=== PATIENT | female | born 1935 | race Caucasian/White ===

== ENCOUNTER 2018-04-30 10:23 | Inpatient (IN) | payer MEDICARE, OTHER ==
[~2018-04-30] VITALS: Ht 162.6 cm; Wt 128.3 kg
[2018-04-30 11:17] LABS: BASOPHILS ABSOLUTE AUTO 0.02 K/mm3 (0.00-0.23); BASOPHILS PERCENT AUTO 0 % (0-2); EOSINOPHILS ABSOLUTE AUTO 0.11 K/mm3 (0.00-0.68); EOSINOPHILS PERCENT AUTO 1 % (0-6); Hematocrit 43.2 % (33.0-51.0); IMMATURE GRAN ABSOLUTE AUTO 0.03 K/mm3 (0.00-0.10); IMMATURE GRAN PERCENT AUTO 0 % (0-1); LYMPHOCYTES PERCENT AUTO 19 % (21-46); MONOCYTES ABSOLUTE AUTO 1.66 K/mm3 (0.16-1.47); MONOCYTES PERCENT AUTO 15 % (4-13); Mean Corpuscular HGB 30.2 pg (26.0-34.0); Mean Corpuscular HGB Conc 32.4 g/dL (31.5-36.5); Mean Corpuscular Volume 93 fL (80-100); Mean Platelet Volume 12.5 fL (9.1-12.4); NEUTROPHILS PERCENT AUTO 65 % (41-73); Platelet Count 250 K/mm3 (150-400); RDW Coefficient Variation 13.2 % (11.7-14.2); RDW Standard Deviation 44.9 fL (35.1-46.3); Red Blood Cell Count 4.64 M/mm3 (3.80-5.20); White Blood Cell Count 10.82 K/mm3 (4.00-11.30)
[2018-04-30 11:21] LABS: Albumin, Blood 3.2 g/dL (3.4-5.0); Albumin/Globulin Ratio 0.9 (0.8-1.8); Bilirubin, Total 1.1 mg/dL (0.1-1.0); Bun/Creatinine Ratio 21.6 (12.0-20.0); Calcium, Blood 8.4 mg/dL (8.5-10.1); Creatinine, Blood 1.53 mg/dL (0.40-1.00); Globulin, Blood 3.4 g/dL (2.2-4.0); Potassium, Blood 3.7 mmol/L (3.5-5.5); Total Protein, Blood 6.6 g/dL (6.4-8.2)
[2018-04-30] MEDS ORDERED: ALLEGRA ALLERG180 MG PO (12:20)
[2018-04-30] MEDS ORDERED: LOSA50 PO (12:20)
[2018-04-30] MEDS ORDERED: POTA8 PO (12:20)
[2018-04-30] MEDS ORDERED: Simvastatin40 MG PO (12:21)
[2018-04-30] MEDS ORDERED: OMEPRAZOLE MAGN20 MG PO (12:21)
[2018-04-30] MEDS ORDERED: PYRI60 PO (12:21)
[2018-04-30] MEDS ORDERED: HYDCHL25 PO (12:22)
[2018-04-30] MEDS ORDERED: FURO20 PO (12:22)
[2018-04-30] MEDS ORDERED: LEVSOD137 PO (12:22)
[2018-04-30] MEDS ORDERED: GLIP5 PO (12:22)
[2018-04-30] MEDS ORDERED: METF500C PO (12:23)
[2018-04-30] MEDS ORDERED: Ocuvite Softge1 EAC1 PO (16:47)
[2018-04-30] MEDS ORDERED: Aspirin EC81 MG PO (16:49)
[2018-04-30] MEDS ORDERED: ERGO400 PO (16:51)
[2018-04-30] MEDS ORDERED: CENTRUM SILVER1 EAC2 PO (16:52)
[2018-05-01 04:42] LABS: BASOPHILS ABSOLUTE AUTO 0.03 K/mm3 (0.00-0.23); BASOPHILS PERCENT AUTO 0 % (0-2); EOSINOPHILS ABSOLUTE AUTO 0.23 K/mm3 (0.00-0.68); EOSINOPHILS PERCENT AUTO 2 % (0-6); Hematocrit 35.5 % (33.0-51.0); Hemoglobin 11.5 g/dL (11.5-16.0); IMMATURE GRAN ABSOLUTE AUTO 0.03 K/mm3 (0.00-0.10); IMMATURE GRAN PERCENT AUTO 0 % (0-1); LYMPHOCYTES ABSOLUTE AUTO 2.31 K/mm3 (0.84-5.20); LYMPHOCYTES PERCENT AUTO 24 % (21-46); MONOCYTES ABSOLUTE AUTO 1.78 K/mm3 (0.16-1.47); MONOCYTES PERCENT AUTO 18 % (4-13); Mean Corpuscular HGB 29.9 pg (26.0-34.0); Mean Corpuscular HGB Conc 32.4 g/dL (31.5-36.5); Mean Corpuscular Volume 92 fL (80-100); Mean Platelet Volume 12.8 fL (9.1-12.4); NEUTROPHILS ABSOLUTE AUTO 5.27 K/mm3 (1.96-9.15); NEUTROPHILS PERCENT AUTO 55 % (41-73); Platelet Count 200 K/mm3 (150-400); RDW Coefficient Variation 13.3 % (11.7-14.2); Red Blood Cell Count 3.84 M/mm3 (3.80-5.20); White Blood Cell Count 9.65 K/mm3 (4.00-11.30)
--- NOTE | 2018-05-01 04:59 | NUR ---
SHIFT SUMMARY PT ALERT AND ORIENTED. OFFERS NO C/O'S. PT ATE SOME JELLO AND SHORTLY AFTER TO BATHROOM MULTIPLE TIMES WITH LOOSE STOOLS. PT UPSET BECAUSE SHE IS NOT ABLE TO ALWAYS MAKE IT TO THE BATHROOM. PT BECOMING WEAKER THE MORE SHE GETS UP AND NEEDS HELP GETTING LOWER EXTREMITIES BACK INTO BED. PT HAS BEEN SLEEPING NOW AND NOT UP TO BATHROOM WITH LOOSE STOOLS SINCE ABOUT MIDNIGHT. IVF'S INFUSING PER PUMP WITHOUT DIFFICULTY, ARMBOARD PLACED ON RIGHT ARM PER PT REQUEST TO PREVENT HER FROM BENDING AT ELBOW. WILL CONTINUE TO MONITOR.
[2018-05-01 05:03] LABS: Albumin, Blood 2.5 g/dL (3.4-5.0); Albumin/Globulin Ratio 0.9 (0.8-1.8); Bilirubin, Total 1.1 mg/dL (0.1-1.0); Bun/Creatinine Ratio 20.3 (12.0-20.0); C-REACTIVE PROTEIN, EXT RANGE 1.92 mg/dL (0.000-0.300); Calcium, Blood 6.9 mg/dL (8.5-10.1); Creatinine, Blood 1.23 mg/dL (0.40-1.00); Globulin, Blood 2.7 g/dL (2.2-4.0); Potassium, Blood 3.2 mmol/L (3.5-5.5); Total Protein, Blood 5.2 g/dL (6.4-8.2)
[2018-05-01 05:06] LABS: Thyroid Stimulating Hormone 2.05 uIU/mL (0.360-4.800)
[2018-05-01 05:11] LABS: Magnesium, Blood 1.1 mg/dL (1.6-2.4)
--- NOTE | 2018-05-01 05:19 | NUR ---
CRITICAL [facility] OF 1.1 CALLED FROM LAB, HOSPITALIST CALLED AND ORDER RECEIVED.
[2018-05-01 08:17] LABS: Source, Urine Clean Catch
[2018-05-01 08:18] LABS: Bilirubin, Urine Neg (Neg); Blood, Urine Neg (Neg); Glucose Qualitative, Urine Neg (Neg); Ketones, Urine 1+ (Neg); Leukocyte Esterase, Urine 1+ (Neg); Nitrite, Urine Neg (Neg); Protein, Urine 1+ (Neg); Urobilinogen, Urine NORM (Normal)
[2018-05-01 08:24] LABS: Appearance, Urine Clear (Clear); Color, Urine Yellow (P-Yellow)
[2018-05-01 08:26] LABS: Squamous Epithelial Cells Mod /hpf (Few)
[2018-05-01 08:27] LABS: Red Blood Cells, Urine 0-2 /hpf (0-2)
[2018-05-01 08:28] LABS: Bacteria Few /hpf
--- NOTE | 2018-05-01 18:27 | NUR ---
PATIENT A/O X4, UP WITH SBA TO RESTROOM. TOLERATING ADA DIET THIS SHIFT, NO DIARRHEA SINCE THIS AM. HAS NOT REQUIRED ANYTHING FOR PAIN. VSS. 18G IV TO L UPPER ARM WITH NS @ 125/HR. MAGNESIUM AND POTASSIUM REPLACED TODAY. ACHS BLOOD SUGARS, NO COVERAGE NEEDED THIS SHIFT. CALM AND COOPERATIVE WITH CARE, CALLS APPROPRIATELY FOR ASSISTANCE. NO ACUTE CHANGES THIS SHIFT.
[2018-05-02 04:56] LABS: Hematocrit 37.1 % (33.0-51.0); Hemoglobin 11.8 g/dL (11.5-16.0); Mean Corpuscular HGB 29.9 pg (26.0-34.0); Mean Corpuscular HGB Conc 31.8 g/dL (31.5-36.5); Mean Corpuscular Volume 94 fL (80-100); Mean Platelet Volume 12.5 fL (9.1-12.4); Platelet Count 194 K/mm3 (150-400); RDW Coefficient Variation 13.2 % (11.7-14.2); RDW Standard Deviation 45.8 fL (35.1-46.3); Red Blood Cell Count 3.94 M/mm3 (3.80-5.20); White Blood Cell Count 10.65 K/mm3 (4.00-11.30)
[2018-05-02 05:17] LABS: Albumin, Blood 2.6 g/dL (3.4-5.0); Anion Gap 7 mmol/L (6-16); Blood Urea Nitrogen 15 mg/dL (8-24); Bun/Creatinine Ratio 13.6 (12.0-20.0); CO2, Blood 22 mmol/L (21-32); Calcium, Blood 7.3 mg/dL (8.5-10.1); Chloride, Blood 114 mmol/L (98-108); Glomerular Filtration Rate 50 (60-); Glucose, Blood 135 mg/dL (70-99); Magnesium, Blood 1.8 mg/dL (1.6-2.4); Phosphorus, Blood 2.1 mg/dL (2.5-4.9); Potassium, Blood 3.7 mmol/L (3.5-5.5); Sodium, Blood 143 mmol/L (136-145)
--- NOTE | 2018-05-02 05:25 | NUR ---
SHIFT SUMMARY PT HAD BOUT OF LOOSE STOOLS X 3-4 EARLY ON IN EVENING. PT BECOMES TEARY BECAUSE SHE FEELS SO WEAK AND NEEDS HELP TO GET LOWER EXTREMITIES BACK INTO BED. PT HAS SLEPT WELL SINCE ABOUT 10 PM, NO FURTHER STOOLS. WILL CONTINUE TO MONITOR.
--- NOTE | 2018-05-02 14:02 | NUR ---
Patient gave consent for student nurse, Haydee Blackwood to assist RN with her care on 05/02/18. Care will be given 05/03/18.
--- NOTE | 2018-05-02 15:40 | NUR ---
TALKED TO DR. THOMPSON ABOUT LAB UNABLE TO DO TPMT . OK TO CANCEL AND MD REQUEST QUANTIFERON TEST.
--- NOTE | 2018-05-02 18:23 | NUR ---
ALERT AND ORIENTED. STANDBY ASSIST TO BATHROOM. IV PATENT W/POTASSIUM INFUSING W/NACL AT SLOW RATE. DENIES PAIN. UNLABORED RESPIRATIONS. PLEASANT, COOPERATIVE. POSSIBLE D'C TOMORROW. WILL CONTINUE TO MONITOR.
--- NOTE | 2018-05-03 03:27 | NUR ---
SHIFT SUMMARY PT AWAKE, SITTING IN CHAIR AT BS, DURING SHIFT REPORT. VISITORS IN RM. PT REPORTED THAT SHE HAS HAD DIARRHEA FOR SEVERAL MONTHS, AND UNABLE TO GET IT STOPPED OR CHECKED OUT. PT REPORTED THAT SHE IS THE CAREGIVER FOR HER AND UNABLE TO LEAVE HIM, UNTIL DAUGHTER CAME UP FOR A VISIT. PT REPORTED IMPROVEMENT SINCE ADMISSION. CALLS FOR ASSIST TO BTHRM WITH IV PUMP. PT MORBIDLY, MAKING MOBILITY DIFFICULT AND DOES NOT LIKE TOO MUCH HELP D/T ARTHRITIS PAIN. C/O SWELLING IN HER LEGS, BUT SITS IN A CHAIR WITH LE'S DEPENDANT MUCH OF THE TIME. ENCOURGED PT TO ELEVATE WHEN POSSIBLE. PT REPORTED DIFFICULTY WITH LYING IN BED D/T BACK AND SHOULDER PAIN. HAS SEEMED TO REST WELL THOUGH TONIGHT, WHILE IN BED. HAS DENIED NEEDS, EXCEPT FOR ASSIST TO BTHRM. CALL LT IN REACH. ABLE TO MAKE NEEDS KNOWN.
[2018-05-03 05:00] LABS: BASOPHILS ABSOLUTE AUTO 0.02 K/mm3 (0.00-0.23); BASOPHILS PERCENT AUTO 0 % (0-2); EOSINOPHILS ABSOLUTE AUTO 0.27 K/mm3 (0.00-0.68); EOSINOPHILS PERCENT AUTO 3 % (0-6); Hematocrit 36.8 % (33.0-51.0); Hemoglobin 11.7 g/dL (11.5-16.0); IMMATURE GRAN ABSOLUTE AUTO 0.09 K/mm3 (0.00-0.10); IMMATURE GRAN PERCENT AUTO 1 % (0-1); LYMPHOCYTES ABSOLUTE AUTO 2.04 K/mm3 (0.84-5.20); LYMPHOCYTES PERCENT AUTO 21 % (21-46); MONOCYTES PERCENT AUTO 16 % (4-13); Mean Corpuscular HGB 29.9 pg (26.0-34.0); Mean Corpuscular HGB Conc 31.8 g/dL (31.5-36.5); Mean Corpuscular Volume 94 fL (80-100); Mean Platelet Volume 12.4 fL (9.1-12.4); NEUTROPHILS ABSOLUTE AUTO 5.71 K/mm3 (1.96-9.15); NEUTROPHILS PERCENT AUTO 59 % (41-73); Platelet Count 187 K/mm3 (150-400); RDW Coefficient Variation 13.4 % (11.7-14.2); RDW Standard Deviation 46.5 fL (35.1-46.3); Red Blood Cell Count 3.91 M/mm3 (3.80-5.20); White Blood Cell Count 9.63 K/mm3 (4.00-11.30)
[2018-05-03 05:34] LABS: Bun/Creatinine Ratio 10.1 (12.0-20.0); Calcium, Blood 7.5 mg/dL (8.5-10.1); Creatinine, Blood 1.09 mg/dL (0.40-1.00); Potassium, Blood 3.7 mmol/L (3.5-5.5)
[2018-05-03] MEDS ORDERED: CALCA500S6 PO (12:42)
[2018-05-03] MEDS ORDERED: CIPR250 PO (12:43)
[2018-05-03] MEDS ORDERED: BISM300CH PO (12:43)
[2018-05-03] MEDS ORDERED: METO10 PO (12:44)
[2018-05-03] MEDS ORDERED: Humalog100 UNIT/1 SC (12:45)
[2018-05-03] MEDS ORDERED: Nystatin15 GM TOP (12:46)
[2018-05-03] MEDS ORDERED: ONDA4ODT MM (12:46)
[2018-05-03] MEDS ORDERED: METR500 PO (12:46)
--- NOTE | 2018-05-03 13:33 | NUR ---
REVIEW D'C INSTRUCTIONS EXTENSIVELY.AWARE TO PREPRESS STRIPPER MEDS AT [facility]. REVIEW ALL NEW MEDS WITH PATIENT BEING FAMILAR WITH HOW TO GIVE INSULIN INJECTIONS. ALREADY HAS APPT W/PCP. AWARE IF HAVING PROBLEMS TO CALL PCP OR GO TO E.R. IN W/C W/ESCORT AND MULTIPLE FAMILY MEMBERS.
== END 2018-05-03 13:39 | disposition home or self-care (01) | DRG 392 ==
LOC: ER 10:23 → MEDS 15:30
PROVIDERS: Physician Assistant; ADMIT Family Medicine
DX: K52.9 Noninfective gastroenteritis and colitis, unspecified (principal); Z68.41 Body mass index [BMI] 40.0-44.9, adult; E11.22 Type 2 diabetes mellitus with diabetic chronic kidney disease; E11.65 Type 2 diabetes mellitus with hyperglycemia; E86.0 Dehydration; E11.42 Type 2 diabetes mellitus with diabetic polyneuropathy; G70.9 Myoneural disorder, unspecified; E83.42 Hypomagnesemia; N18.3 Chronic kidney disease, stage 3 (moderate); R50.9 Fever, unspecified; N28.9 Disorder of kidney and ureter, unspecified; I12.9 Hypertensive chronic kidney disease with stage 1 through stage 4 chronic kidney disease, or unspecified chronic kidney disease; E03.9 Hypothyroidism, unspecified; E78.5 Hyperlipidemia, unspecified; R60.0 Localized edema; E78.1 Pure hyperglyceridemia; E66.9 Obesity, unspecified; Z79.84 Long term (current) use of oral hypoglycemic drugs; Z87.891 Personal history of nicotine dependence; Z98.84 Bariatric surgery status; Z98.0 Intestinal bypass and anastomosis status; Z90.49 Acquired absence of other specified parts of digestive tract; Z88.2 Allergy status to sulfonamides; Z88.5 Allergy status to narcotic agent; Z88.1 Allergy status to other antibiotic agents
CPT/HCPCS: 36415; 74018; 74176; 80048; 80053; 80069; 81001; 82306; 82947; 83036; 83605; 83690; 83735; 84145; 84443; 85025; 85027; 86140; 87507; 96361; 96365; 99285-25; J0744; J1650; J2405; J3475; J3480; J7030; J7060; J7120

== ENCOUNTER 2018-07-28 10:26 | Emergency (ER) | payer MEDICARE, OTHER ==
[~2018-07-28] VITALS: Ht 162.6 cm; Wt 112.0 kg
[~2018-07-28 10:26] MED LIST: ALLEGRA ALLERG180 MG PO; Aspirin EC81 MG PO; BISM300CH PO; CALCA500S6 PO; CENTRUM SILVER1 EAC2 PO; CIPR250 PO; ERGO400 PO; FURO20 PO; GLIP5 PO; HYDCHL25 PO; Humalog100 UNIT/1 SC; LEVSOD137 PO; LOSA50 PO; METF500C PO; METO10 PO; METR500 PO; Nystatin15 GM TOP; OMEPRAZOLE MAGN20 MG PO; ONDA4ODT MM; Ocuvite Softge1 EAC1 PO; POTA8 PO; PYRI60 PO; Simvastatin40 MG PO
[2018-07-28 10:47] LABS: Source, Urine Voided
[2018-07-28] MEDS ORDERED: Humalog100 UNIT/3 SC (10:47)
[2018-07-28] MEDS ORDERED: HYDCHL25 PO (10:49)
[2018-07-28] MEDS ORDERED: ALLEGRA ALLERG180 M1 PO (10:49)
[2018-07-28] MEDS ORDERED: ACID REDUCER20 MG PO (10:50)
[2018-07-28] MEDS ORDERED: GLIP5 PO (10:51)
[2018-07-28 10:56] LABS: Bilirubin, Urine Neg (Neg); Blood, Urine 4+ (Neg); Glucose Qualitative, Urine Neg (Neg); Ketones, Urine Neg (Neg); Leukocyte Esterase, Urine 1+ (Neg); Nitrite, Urine Neg (Neg); Protein, Urine Neg (Neg); Specific Gravity, Urine 1.005 (1.003-1.022); Urobilinogen, Urine NORM (Normal); pH, Urine 6.5 (5.0-8.0)
[2018-07-28 11:11] LABS: Appearance, Urine Clear (Clear); Color, Urine Yellow (P-Yellow)
[2018-07-28 11:13] LABS: Bacteria Few /hpf; Squamous Epithelial Cells Few /hpf (Few)
[2018-07-28] MEDS ORDERED: Macrobid 100 M100 MG PO (12:17)
== END 2018-07-28 12:38 | disposition home or self-care (01) ==
LOC: ER 10:26
PROVIDERS: Emergency Medicine
DX: M54.5 Low back pain (principal); N39.0 Urinary tract infection, site not specified
CPT/HCPCS: 72100; 81001; 82947; 87077; 87086; 87186; 99284-25

== ENCOUNTER → 2020-04-09 | Outpatient (CLI) | payer MEDICARE, OTHER ==
[~2020-04-09] MED LIST changes: +ACID REDUCER20 MG PO; +ALLEGRA ALLERG180 M1 PO; +Humalog100 UNIT/3 SC; +Macrobid 100 M100 MG PO; +Roxicodone5 MG PO
== END ==
LOC: LAB SHORT 17:39
DX: N39.0 Urinary tract infection, site not specified (principal)
CPT/HCPCS: 87077; 87086; 87186

== ENCOUNTER 2022-02-06 10:00 | Emergency (ER) | payer MEDICARE, OTHER ==
[~2022-02-06] VITALS: Ht 162.6 cm; Wt 124.7 kg
[2022-02-06 10:23] LABS: BASOPHILS ABSOLUTE AUTO 0.04 K/mm3 (0.00-0.23); BASOPHILS PERCENT AUTO 0 % (0-2); EOSINOPHILS ABSOLUTE AUTO 0.18 K/mm3 (0.00-0.68); EOSINOPHILS PERCENT AUTO 2 % (0-6); Hematocrit 48.1 % (33.0-51.0); Hemoglobin 15.5 g/dL (11.5-16.0); IMMATURE GRAN ABSOLUTE AUTO 0.05 K/mm3 (0.00-0.10); IMMATURE GRAN PERCENT AUTO 1 % (0-1); LYMPHOCYTES ABSOLUTE AUTO 1.78 K/mm3 (0.84-5.20); LYMPHOCYTES PERCENT AUTO 18 % (21-46); MONOCYTES ABSOLUTE AUTO 1.04 K/mm3 (0.16-1.47); MONOCYTES PERCENT AUTO 11 % (4-13); Mean Corpuscular HGB 29.2 pg (26.0-34.0); Mean Corpuscular HGB Conc 32.2 g/dL (31.5-36.5); Mean Corpuscular Volume 91 fL (80-100); Mean Platelet Volume 11.7 fL (9.1-12.4); NEUTROPHILS ABSOLUTE AUTO 6.83 K/mm3 (1.96-9.15); NEUTROPHILS PERCENT AUTO 69 % (41-73); Platelet Count 214 K/mm3 (150-400); RDW Coefficient Variation 13.2 % (11.7-14.2); RDW Standard Deviation 44.5 fL (35.1-46.3); White Blood Cell Count 9.92 K/mm3 (4.00-11.30)
[2022-02-06 10:34] LABS: Albumin, Blood 3.6 g/dL (3.4-5.0); Bilirubin, Total 1.4 mg/dL (0.1-1.0); Bun/Creatinine Ratio 20.8 (12.0-20.0); Calcium, Blood 9.9 mg/dL (8.5-10.1); Creatinine, Blood 0.77 mg/dL (0.40-1.00); Globulin, Blood 3.6 g/dL (2.2-4.0); Magnesium, Blood 1.9 mg/dL (1.6-2.4); Potassium, Blood 4.2 mmol/L (3.5-5.5); Total Protein, Blood 7.2 g/dL (6.4-8.2)
[2022-02-06 11:19] LABS: Influenza A, PCR NEGATIVE (NEGATIVE); Influenza B, PCR NEGATIVE (NEGATIVE); Resp Syncytial Virus, PCR NEGATIVE (NEGATIVE); SARS-Cov-2 (COVID-19) PCR, MMC NEGATIVE (NEGATIVE)
== END 2022-02-06 13:04 | disposition home or self-care (01) ==
LOC: ER 10:00
PROVIDERS: Student in an Organized Health Care Education/Training Program
DX: R11.0 Nausea (principal); T38.3X5A Adverse effect of insulin and oral hypoglycemic [antidiabetic] drugs, initial encounter; E11.65 Type 2 diabetes mellitus with hyperglycemia; E03.9 Hypothyroidism, unspecified; E78.5 Hyperlipidemia, unspecified; K21.9 Gastro-esophageal reflux disease without esophagitis; I10 Essential (primary) hypertension; Z20.822 Contact with and (suspected) exposure to COVID-19; Z88.5 Allergy status to narcotic agent; Z88.2 Allergy status to sulfonamides; Z88.8 Allergy status to other drugs, medicaments and biological substances; Z88.1 Allergy status to other antibiotic agents; Z79.899 Other long term (current) drug therapy; Z79.890 Hormone replacement therapy; Z79.82 Long term (current) use of aspirin; Z79.4 Long term (current) use of insulin; Z87.891 Personal history of nicotine dependence
CPT/HCPCS: 0241U; 80053; 83735; 85025; 93005; 93010; J2405

== ENCOUNTER 2022-03-16 05:57 | Emergency (ER) | payer MEDICARE, OTHER ==
[~2022-03-16] VITALS: Ht 162.6 cm; Wt 122.5 kg
[~2022-03-16 05:57] MED LIST changes: +AMLO5 PO; +XARELTO20 MG PO
[2022-03-16 06:57] LABS: BASOPHILS ABSOLUTE AUTO 0.02 K/mm3 (0.00-0.23); BASOPHILS PERCENT AUTO 0 % (0-2); EOSINOPHILS ABSOLUTE AUTO 0.16 K/mm3 (0.00-0.68); EOSINOPHILS PERCENT AUTO 2 % (0-6); Hemoglobin 13.3 g/dL (11.5-16.0); IMMATURE GRAN ABSOLUTE AUTO 0.03 K/mm3 (0.00-0.10); IMMATURE GRAN PERCENT AUTO 0 % (0-1); LYMPHOCYTES PERCENT AUTO 14 % (21-46); MONOCYTES ABSOLUTE AUTO 0.93 K/mm3 (0.16-1.47); MONOCYTES PERCENT AUTO 11 % (4-13); Mean Corpuscular HGB 29.8 pg (26.0-34.0); Mean Corpuscular HGB Conc 32.4 g/dL (31.5-36.5); Mean Corpuscular Volume 92 fL (80-100); Mean Platelet Volume 13.4 fL (9.1-12.4); NEUTROPHILS ABSOLUTE AUTO 6.02 K/mm3 (1.96-9.15); NEUTROPHILS PERCENT AUTO 72 % (41-73); Platelet Count 177 K/mm3 (150-400); RDW Coefficient Variation 13.6 % (11.7-14.2); RDW Standard Deviation 46.3 fL (35.1-46.3); Red Blood Cell Count 4.46 M/mm3 (3.80-5.20); White Blood Cell Count 8.36 K/mm3 (4.00-11.30)
[2022-03-16 07:20] LABS: Albumin, Blood 3.1 g/dL (3.4-5.0); Bilirubin, Total 1.2 mg/dL (0.1-1.0); Creatinine, Blood 0.93 mg/dL (0.40-1.00); Globulin, Blood 3.2 g/dL (2.2-4.0); Potassium, Blood 4.2 mmol/L (3.5-5.5); Total Protein, Blood 6.3 g/dL (6.4-8.2)
[2022-03-16 08:55] LABS: Influenza A, PCR NEGATIVE (NEGATIVE); Influenza B, PCR NEGATIVE (NEGATIVE); Resp Syncytial Virus, PCR NEGATIVE (NEGATIVE); SARS-Cov-2 (COVID-19) PCR, MMC NEGATIVE (NEGATIVE)
[2022-03-16] MEDS ORDERED: FURO20 PO (10:20)
[2022-03-16] MEDS ORDERED: CEFD300 PO (10:43)
== END 2022-03-16 10:58 | disposition home or self-care (01) ==
LOC: ER 05:57
PROVIDERS: Student in an Organized Health Care Education/Training Program
DX: I11.0 Hypertensive heart disease with heart failure (principal); I50.9 Heart failure, unspecified; N39.0 Urinary tract infection, site not specified; R32 Unspecified urinary incontinence; E11.9 Type 2 diabetes mellitus without complications; E03.9 Hypothyroidism, unspecified; K21.9 Gastro-esophageal reflux disease without esophagitis; E78.5 Hyperlipidemia, unspecified; Z88.2 Allergy status to sulfonamides; Z88.5 Allergy status to narcotic agent; Z88.8 Allergy status to other drugs, medicaments and biological substances; Z79.899 Other long term (current) drug therapy; Z79.890 Hormone replacement therapy; Z79.82 Long term (current) use of aspirin; Z20.822 Contact with and (suspected) exposure to COVID-19
CPT/HCPCS: 0241U; 36415; 71045; 80053; 82947; 83880; 84484; 85025; 93005; 93010; A9270; J1940

== ENCOUNTER 2022-04-27 08:22 | Emergency (ER) | payer MEDICARE, OTHER ==
[~2022-04-27] VITALS: Ht 160 cm; Wt 122.5 kg
[~2022-04-27 08:22] MED LIST changes: +CEFD300 PO; -LEVSOD137 PO; +LEVSOD150 PO
[2022-04-27] MEDS ORDERED: BASAGLAR K100 UNIT/3 SC (09:08)
[2022-04-27] MEDS ORDERED: ADMELOG SO100 UNIT/2 (09:13)
[2022-04-27 10:25] LABS: Source, Urine Foley catheter
[2022-04-27 10:34] LABS: Bilirubin, Urine Neg (Neg); Blood, Urine Neg (Neg); Glucose Qualitative, Urine Neg (Neg); Ketones, Urine Neg (Neg); Leukocyte Esterase, Urine Neg (Neg); Nitrite, Urine Neg (Neg); Protein, Urine 2+ (Neg); Specific Gravity, Urine 1.015 (1.003-1.022); Urobilinogen, Urine NORM (Normal)
[2022-04-27 10:55] LABS: Appearance, Urine Clear (Clear); Color, Urine Yellow (P-Yellow)
[2022-04-27 10:56] LABS: Bacteria Not Seen /hpf; Red Blood Cells, Urine Not Seen /hpf (0-2); Squamous Epithelial Cells Rare /hpf (Few); White Blood Cells, Urine Not Seen /hpf (0-5)
== END 2022-04-27 12:11 | disposition home or self-care (01) ==
LOC: ER 08:22
PROVIDERS: Emergency Medicine
DX: L72.3 Sebaceous cyst (principal); E11.9 Type 2 diabetes mellitus without complications; E03.9 Hypothyroidism, unspecified; I10 Essential (primary) hypertension; K21.9 Gastro-esophageal reflux disease without esophagitis; E78.5 Hyperlipidemia, unspecified; Z88.8 Allergy status to other drugs, medicaments and biological substances; Z88.2 Allergy status to sulfonamides; Z88.5 Allergy status to narcotic agent; Z88.1 Allergy status to other antibiotic agents; Z79.899 Other long term (current) drug therapy; Z79.4 Long term (current) use of insulin; Z79.82 Long term (current) use of aspirin; Z87.891 Personal history of nicotine dependence
CPT/HCPCS: 51702; 81001; 90714

== ENCOUNTER 2022-04-30 12:44 | Emergency (ER) | payer MEDICARE, OTHER ==
[~2022-04-30] VITALS: Ht 160 cm; Wt 122.5 kg
[~2022-04-30 12:44] MED LIST changes: +ADMELOG SO100 UNIT/2; +BASAGLAR K100 UNIT/3 SC
[2022-04-30] MEDS ORDERED: ALLEGRA ALLERG180 MG PO (15:19)
[2022-04-30 19:02] LABS: BASOPHILS ABSOLUTE AUTO 0.06 K/mm3 (0.00-0.23); BASOPHILS PERCENT AUTO 1 % (0-2); EOSINOPHILS ABSOLUTE AUTO 0.28 K/mm3 (0.00-0.68); EOSINOPHILS PERCENT AUTO 3 % (0-6); Hematocrit 41.3 % (33.0-51.0); Hemoglobin 13.5 g/dL (11.5-16.0); IMMATURE GRAN ABSOLUTE AUTO 0.03 K/mm3 (0.00-0.10); IMMATURE GRAN PERCENT AUTO 0 % (0-1); LYMPHOCYTES PERCENT AUTO 16 % (21-46); MONOCYTES ABSOLUTE AUTO 1.36 K/mm3 (0.16-1.47); MONOCYTES PERCENT AUTO 14 % (4-13); Mean Corpuscular HGB 29.6 pg (26.0-34.0); Mean Corpuscular HGB Conc 32.7 g/dL (31.5-36.5); Mean Corpuscular Volume 91 fL (80-100); NEUTROPHILS ABSOLUTE AUTO 6.31 K/mm3 (1.96-9.15); NEUTROPHILS PERCENT AUTO 66 % (41-73); Platelet Count 177 K/mm3 (150-400); RDW Standard Deviation 46.5 fL (35.1-46.3); Red Blood Cell Count 4.56 M/mm3 (3.80-5.20); White Blood Cell Count 9.54 K/mm3 (4.00-11.30)
[2022-04-30 19:05] LABS: Bun/Creatinine Ratio 22.2 (12.0-20.0); Creatinine, Blood 0.85 mg/dL (0.40-1.00); Potassium, Blood 3.5 mmol/L (3.5-5.5)
[2022-04-30 19:07] LABS: Mean Platelet Volume 13.3 fL (9.1-12.4)
[2022-04-30] MEDS ORDERED: Vibramycin100 MG PO (19:38)
[2022-04-30] MEDS ORDERED: NYSTATIN-TRIAMC15 G1 TOP (19:38)
== END 2022-04-30 20:54 | disposition home or self-care (01) ==
LOC: ER 12:44
PROVIDERS: Emergency Medicine
DX: L03.221 Cellulitis of neck (principal); B95.62 Methicillin resistant Staphylococcus aureus infection as the cause of diseases classified elsewhere; B35.4 Tinea corporis; I10 Essential (primary) hypertension; E11.9 Type 2 diabetes mellitus without complications; E03.9 Hypothyroidism, unspecified; E78.5 Hyperlipidemia, unspecified; Z88.8 Allergy status to other drugs, medicaments and biological substances; Z88.2 Allergy status to sulfonamides; Z88.5 Allergy status to narcotic agent; Z88.1 Allergy status to other antibiotic agents; Z79.899 Other long term (current) drug therapy; Z79.4 Long term (current) use of insulin; Z79.82 Long term (current) use of aspirin
CPT/HCPCS: 80048; 82947; 85025; A9270; J2405

== ENCOUNTER 2022-05-02 13:05 | Inpatient (IN) | payer MEDICARE, OTHER ==
[~2022-05-02] VITALS: Ht 160 cm; Wt 129.1 kg
[~2022-05-02 13:05] MED LIST changes: +NYSTATIN-TRIAMC15 G1 TOP; +Vibramycin100 MG PO
[2022-05-02 15:15] LABS: BASOPHILS ABSOLUTE AUTO 0.06 K/mm3 (0.00-0.23); BASOPHILS PERCENT AUTO 1 % (0-2); EOSINOPHILS ABSOLUTE AUTO 0.07 K/mm3 (0.00-0.68); EOSINOPHILS PERCENT AUTO 1 % (0-6); Hematocrit 44.7 % (33.0-51.0); Hemoglobin 14.2 g/dL (11.5-16.0); IMMATURE GRAN ABSOLUTE AUTO 0.06 K/mm3 (0.00-0.10); IMMATURE GRAN PERCENT AUTO 1 % (0-1); LYMPHOCYTES ABSOLUTE AUTO 1.88 K/mm3 (0.84-5.20); LYMPHOCYTES PERCENT AUTO 18 % (21-46); MONOCYTES ABSOLUTE AUTO 1.61 K/mm3 (0.16-1.47); MONOCYTES PERCENT AUTO 16 % (4-13); Mean Corpuscular HGB 29.2 pg (26.0-34.0); Mean Corpuscular HGB Conc 31.8 g/dL (31.5-36.5); Mean Corpuscular Volume 92 fL (80-100); NEUTROPHILS ABSOLUTE AUTO 6.66 K/mm3 (1.96-9.15); NEUTROPHILS PERCENT AUTO 64 % (41-73); Platelet Count 195 K/mm3 (150-400); RDW Standard Deviation 47.4 fL (35.1-46.3); Red Blood Cell Count 4.86 M/mm3 (3.80-5.20); White Blood Cell Count 10.34 K/mm3 (4.00-11.30)
[2022-05-02 15:47] LABS: Influenza A, PCR NEGATIVE (NEGATIVE); Influenza B, PCR NEGATIVE (NEGATIVE); Resp Syncytial Virus, PCR NEGATIVE (NEGATIVE); SARS-Cov-2 (COVID-19) PCR, MMC NEGATIVE (NEGATIVE)
[2022-05-02 16:01] LABS: Albumin, Blood 3.2 g/dL (3.4-5.0); Albumin/Globulin Ratio 0.8 (0.8-1.8); Bilirubin, Total 0.8 mg/dL (0.1-1.0); Calcium, Blood 8.8 mg/dL (8.5-10.1); Creatinine, Blood 1.69 mg/dL (0.40-1.00); Globulin, Blood 3.9 g/dL (2.2-4.0); Potassium, Blood 4.4 mmol/L (3.5-5.5); Total Protein, Blood 7.1 g/dL (6.4-8.2)
[2022-05-02 23:57] LABS: Source, Urine Foley catheter
[2022-05-02 23:59] LABS: Bilirubin, Urine Neg (Neg); Blood, Urine 2+ (Neg); Glucose Qualitative, Urine Neg (Neg); Ketones, Urine Neg (Neg); Leukocyte Esterase, Urine Neg (Neg); Nitrite, Urine Neg (Neg); Protein, Urine 1+ (Neg); Specific Gravity, Urine 1.015 (1.003-1.022); Urobilinogen, Urine NORM (Normal)
[2022-05-03 00:08] LABS: Appearance, Urine Clear (Clear); Bacteria Not Seen /hpf; Color, Urine Yellow (P-Yellow); Red Blood Cells, Urine 0-2 /hpf (0-2); Squamous Epithelial Cells Not Seen /hpf (Few); White Blood Cells, Urine Not Seen /hpf (0-5)
[2022-05-03 00:09] LABS: Amorphous Light (0-Heavy)
[2022-05-03 04:58] LABS: BASOPHILS ABSOLUTE AUTO 0.07 K/mm3 (0.00-0.23); BASOPHILS PERCENT AUTO 1 % (0-2); EOSINOPHILS ABSOLUTE AUTO 0.26 K/mm3 (0.00-0.68); EOSINOPHILS PERCENT AUTO 2 % (0-6); Hematocrit 42.9 % (33.0-51.0); Hemoglobin 13.8 g/dL (11.5-16.0); IMMATURE GRAN ABSOLUTE AUTO 0.05 K/mm3 (0.00-0.10); IMMATURE GRAN PERCENT AUTO 0 % (0-1); LYMPHOCYTES ABSOLUTE AUTO 2.23 K/mm3 (0.84-5.20); LYMPHOCYTES PERCENT AUTO 18 % (21-46); MONOCYTES ABSOLUTE AUTO 1.83 K/mm3 (0.16-1.47); MONOCYTES PERCENT AUTO 14 % (4-13); Mean Corpuscular HGB 29.5 pg (26.0-34.0); Mean Corpuscular HGB Conc 32.2 g/dL (31.5-36.5); Mean Corpuscular Volume 92 fL (80-100); NEUTROPHILS ABSOLUTE AUTO 8.32 K/mm3 (1.96-9.15); NEUTROPHILS PERCENT AUTO 65 % (41-73); Platelet Count 191 K/mm3 (150-400); RDW Coefficient Variation 13.9 % (11.7-14.2); RDW Standard Deviation 46.9 fL (35.1-46.3); Red Blood Cell Count 4.68 M/mm3 (3.80-5.20); White Blood Cell Count 12.76 K/mm3 (4.00-11.30)
[2022-05-03 05:01] LABS: Mean Platelet Volume 13.4 fL (9.1-12.4)
[2022-05-03 05:16] LABS: Albumin/Globulin Ratio 0.8 (0.8-1.8); Bilirubin, Total 0.9 mg/dL (0.1-1.0); Bun/Creatinine Ratio 27.6 (12.0-20.0); Calcium, Blood 8.7 mg/dL (8.5-10.1); Creatinine, Blood 1.63 mg/dL (0.40-1.00); Globulin, Blood 3.7 g/dL (2.2-4.0); Magnesium, Blood 1.6 mg/dL (1.6-2.4); Potassium, Blood 3.9 mmol/L (3.5-5.5); Total Protein, Blood 6.7 g/dL (6.4-8.2)
--- NOTE | 2022-05-03 05:23 | NUR ---
Summary: Patient admitted overnight from ER for CHF exas. AOx4. VSS. Med rec completed with her daughter. Ellison present on admission so we removed that and changed it out, sent UA per protocol. Patient has red rash and excoriation on folds in elbows, knees, groin and neck. Received order for nystatin powder and applied it. Patient is a max assist for mobility and was able to stand and pivot off of the ER stretcher when she arrived. Patient also has an abscess on the back of her neck that was lanced a few days ago. On isolation for MRSA. On 3L NC.
--- NOTE | 2022-05-03 17:45 | NUR ---
ALERT AND ORIENTED, EMOTIONAL CRYING, REPORTS "EVERYTHING HURTS", DAUGHTER HELPFUL IN CARE AT BEDSIDE, OINTMENT AND POWDER TO YEAST FOLDS, BOIL TO LEFT POSTERIOR NECK DRSG CHANGED, WOUND CARE CONSULT ENTERED. 3L NC HYDRATION SATS AT 95%, EASILY SOB, DIMINSHED FINE CRACKLE IN BASES OF LUNGS, ENCOURAGE DEEP BREATHING AND COUGH. CALL LIGHT WITH IN REACH, MAKES NEEDS KNOWN, WILL RELAY TO PM RN
[2022-05-04 04:33] LABS: BASOPHILS ABSOLUTE AUTO 0.03 K/mm3 (0.00-0.23); BASOPHILS PERCENT AUTO 0 % (0-2); EOSINOPHILS ABSOLUTE AUTO 0.11 K/mm3 (0.00-0.68); EOSINOPHILS PERCENT AUTO 1 % (0-6); Hematocrit 39.9 % (33.0-51.0); Hemoglobin 12.8 g/dL (11.5-16.0); IMMATURE GRAN ABSOLUTE AUTO 0.05 K/mm3 (0.00-0.10); IMMATURE GRAN PERCENT AUTO 1 % (0-1); LYMPHOCYTES PERCENT AUTO 6 % (21-46); MONOCYTES ABSOLUTE AUTO 1.96 K/mm3 (0.16-1.47); MONOCYTES PERCENT AUTO 18 % (4-13); Mean Corpuscular HGB 29.5 pg (26.0-34.0); Mean Corpuscular HGB Conc 32.1 g/dL (31.5-36.5); Mean Corpuscular Volume 92 fL (80-100); NEUTROPHILS ABSOLUTE AUTO 8.05 K/mm3 (1.96-9.15); NEUTROPHILS PERCENT AUTO 74 % (41-73); Platelet Count 157 K/mm3 (150-400); RDW Coefficient Variation 13.7 % (11.7-14.2); RDW Standard Deviation 46.6 fL (35.1-46.3); Red Blood Cell Count 4.34 M/mm3 (3.80-5.20)
[2022-05-04 04:54] LABS: Albumin, Blood 2.8 g/dL (3.4-5.0); Albumin/Globulin Ratio 0.9 (0.8-1.8); Bilirubin, Total 0.7 mg/dL (0.1-1.0); Bun/Creatinine Ratio 34.8 (12.0-20.0); Calcium, Blood 8.5 mg/dL (8.5-10.1); Creatinine, Blood 1.35 mg/dL (0.40-1.00); Globulin, Blood 3.2 g/dL (2.2-4.0); Potassium, Blood 3.9 mmol/L (3.5-5.5)
--- NOTE | 2022-05-04 06:14 | NUR ---
Summary: Patient uncomfortable in bed overnight. Found patient a different bed and moved her over to it with staff members for comfort. Patient frequently repositioned on 6 pillows throughout night. Stated she just wasn't comfortable in the bed that her legs were tight from swelling and cannot tolerate laying on her right side nor can she tolerate laying back in the bed. Patient 2x max assist to turn in bed. Ellison in place. IV ABX given. On 3L NC. Patient became nauseous overnight gave prn Zofran. Patient dry heaved but no emesis. Aox4. Cream and power applied in folds for rash. Call light in reach.
--- NOTE | 2022-05-04 16:27 | NUR ---
PATIENT IS ALERT AND ORIENTED AND COOPERATIVE WITH CARE. [facility]. PATIENT'S DAUGHTER HAS BEEN AT THE BEDSIDE THROUGHOUT THE SHIFT. PATIENT C/O GENERALIZED PAIN AND PAIN/TINGLING IN HER BLE. DR. DENNIS ORDERED CYMBALTA FOR HER PAIN AND ANXIETY. PATIENT STATED SHE WAS NAUSEATED LAST NIGHT AND IT RESOLVED THIS MORNING UNTIL THIS AFTERNOON AFTER HER FIRST DOSE OF CYMBALTA THEN SHE C/O NAUSEA ONCE AGAIN. THE PATIENT HAS BEEN ABLE TO SLEEP WELL THIS AFTERNOON ONCE MEDICATED FOR NAUSEA. PATIENT IS C/O CONSTIPATION. DR. DENNIS HAS BEEN NOTIFIED BY TELEPHONE OF THIS. WILL CONTINUE TO MONITOR
[2022-05-05 04:41] LABS: BASOPHILS ABSOLUTE AUTO 0.02 K/mm3 (0.00-0.23); BASOPHILS PERCENT AUTO 0 % (0-2); EOSINOPHILS ABSOLUTE AUTO 0.03 K/mm3 (0.00-0.68); EOSINOPHILS PERCENT AUTO 0 % (0-6); Hematocrit 39.8 % (33.0-51.0); Hemoglobin 12.8 g/dL (11.5-16.0); IMMATURE GRAN ABSOLUTE AUTO 0.04 K/mm3 (0.00-0.10); IMMATURE GRAN PERCENT AUTO 1 % (0-1); LYMPHOCYTES ABSOLUTE AUTO 0.86 K/mm3 (0.84-5.20); LYMPHOCYTES PERCENT AUTO 10 % (21-46); MONOCYTES ABSOLUTE AUTO 1.67 K/mm3 (0.16-1.47); MONOCYTES PERCENT AUTO 20 % (4-13); Mean Corpuscular HGB 29.3 pg (26.0-34.0); Mean Corpuscular HGB Conc 32.2 g/dL (31.5-36.5); Mean Corpuscular Volume 91 fL (80-100); Mean Platelet Volume 12.9 fL (9.1-12.4); NEUTROPHILS ABSOLUTE AUTO 5.92 K/mm3 (1.96-9.15); NEUTROPHILS PERCENT AUTO 69 % (41-73); Platelet Count 174 K/mm3 (150-400); RDW Coefficient Variation 13.9 % (11.7-14.2); RDW Standard Deviation 46.2 fL (35.1-46.3); Red Blood Cell Count 4.37 M/mm3 (3.80-5.20); White Blood Cell Count 8.54 K/mm3 (4.00-11.30)
[2022-05-05 05:31] LABS: Albumin, Blood 2.6 g/dL (3.4-5.0); Albumin/Globulin Ratio 0.8 (0.8-1.8); Bilirubin, Total 0.7 mg/dL (0.1-1.0); Bun/Creatinine Ratio 34.4 (12.0-20.0); Calcium, Blood 8.6 mg/dL (8.5-10.1); Creatinine, Blood 1.22 mg/dL (0.40-1.00); Globulin, Blood 3.4 g/dL (2.2-4.0); Potassium, Blood 3.9 mmol/L (3.5-5.5)
--- NOTE | 2022-05-05 06:44 | NUR ---
PT A&OX4, PLEASANT, COOPERATIVE. CALL LIGHT IN REACH, CALLS APPROPRIATELY. NAUSEA WITH INTERMITTENT DRY HEAVES DURING SHIFT, ZOFRAN IS EFFECTIVE. MOD ASSIST TO REPOSITION IN BED. REDNESS IN SKIN FOLDS STILL PRESENT. NEW IV PLACED, 22G L FA. NO EVENTS OVER NIGHT. STABLE ON 3L O2 NC.
--- NOTE | 2022-05-05 15:36 | NUR ---
PT IMPACTED WITH STOOL, GAVE FLEETS ENEMA WITH NO RESULTS TRIED SMALL AMOUNT OF DIGITAL DISIMPACTMENT THEN GAVE SOAP KURT ENEMA THE PT HAD A LARGE AMOUNT OF HARD FORMED STOOL OUT
--- NOTE | 2022-05-05 18:24 | NUR ---
PT IS A/OX4, COOPERATIVE. PT REPORTS NOT FEELING MUCH IMPROVED TODAY. PT REPORTED CONSTIPATION AND AFTER SUPPOSITIRY AND ENEMAS HAD SOME HARD FORMED STOOL OUTPUT.THE PT IS ON 1.5L/MIN O2 AT THIS TIME. PT WAS MEDICATED FOR PAIN THIS AFTERNOON X1 WITH ULTRAM. PTS DAUGHTER IS AT THE BEDSIDE. PLAN FOR DISCHARGE TO HOME WITH HOSPICE IN AM. CALL LIGHT IN REACH. WILL CONTINUE TO MONITOR AND ASSESS FOR CHANGES
[2022-05-06 04:54] LABS: BASOPHILS ABSOLUTE AUTO 0.03 K/mm3 (0.00-0.23); BASOPHILS PERCENT AUTO 0 % (0-2); EOSINOPHILS ABSOLUTE AUTO 0.03 K/mm3 (0.00-0.68); EOSINOPHILS PERCENT AUTO 0 % (0-6); Hematocrit 43.3 % (33.0-51.0); Hemoglobin 13.4 g/dL (11.5-16.0); IMMATURE GRAN ABSOLUTE AUTO 0.02 K/mm3 (0.00-0.10); IMMATURE GRAN PERCENT AUTO 0 % (0-1); LYMPHOCYTES ABSOLUTE AUTO 1.32 K/mm3 (0.84-5.20); LYMPHOCYTES PERCENT AUTO 19 % (21-46); MONOCYTES ABSOLUTE AUTO 1.59 K/mm3 (0.16-1.47); MONOCYTES PERCENT AUTO 22 % (4-13); Mean Corpuscular HGB 29.1 pg (26.0-34.0); Mean Corpuscular HGB Conc 30.9 g/dL (31.5-36.5); Mean Corpuscular Volume 94 fL (80-100); Mean Platelet Volume 12.7 fL (9.1-12.4); NEUTROPHILS ABSOLUTE AUTO 4.13 K/mm3 (1.96-9.15); NEUTROPHILS PERCENT AUTO 58 % (41-73); Platelet Count 185 K/mm3 (150-400); RDW Standard Deviation 47.9 fL (35.1-46.3); White Blood Cell Count 7.12 K/mm3 (4.00-11.30)
--- NOTE | 2022-05-06 05:04 | NUR ---
PT A0X4, SLEPT MUCH OF SHIFT, AT TIMES REFUSED CARES AND MEDS. NO COMPLAINTS OF N&V LAST NIGHT IN RECENT PREVIOUS SHIFTS. TOLERATING SCHEDULED ANTIBIOTICS. NO BM DURING MY SHIFT. NO EVENTS OVER NIGHT.
[2022-05-06 05:20] LABS: Albumin, Blood 2.6 g/dL (3.4-5.0); Albumin/Globulin Ratio 0.7 (0.8-1.8); Bilirubin, Total 0.6 mg/dL (0.1-1.0); Bun/Creatinine Ratio 34.5 (12.0-20.0); Calcium, Blood 8.3 mg/dL (8.5-10.1); Creatinine, Blood 1.13 mg/dL (0.40-1.00); Globulin, Blood 3.5 g/dL (2.2-4.0); Potassium, Blood 3.9 mmol/L (3.5-5.5); Total Protein, Blood 6.1 g/dL (6.4-8.2)
[2022-05-06] MEDS ORDERED: BISA10S PR (10:20)
[2022-05-06] MEDS ORDERED: MIRALAX17 GM PO (10:21)
--- NOTE | 2022-05-06 13:28 | NUR ---
PT DISCHARGED FROM THE UNIT REPORT GIVEN TO HOSPICE NURSE. PT LEFT VIA GURNEY WITH TRANSPORT. IV REMOVED. TAVAREZ LEFT IN PLACE. PT WILL D/C WITH O2
== END 2022-05-06 11:05 | disposition hospice, home (50) | DRG 291 ==
LOC: ER 13:05 → MEDS 17:37
PROVIDERS: Nurse Practitioner Acute Care; Student in an Organized Health Care Education/Training Program; ADMIT Internal Medicine
DX: I13.0 Hypertensive heart and chronic kidney disease with heart failure and stage 1 through stage 4 chronic kidney disease, or unspecified chronic kidney disease (principal); I50.33 Acute on chronic diastolic (congestive) heart failure; J96.01 Acute respiratory failure with hypoxia; N17.9 Acute kidney failure, unspecified; E87.1 Hypo-osmolality and hyponatremia; J98.11 Atelectasis; N18.30 Chronic kidney disease, stage 3 unspecified; I48.91 Unspecified atrial fibrillation; E03.9 Hypothyroidism, unspecified; G70.00 Myasthenia gravis without (acute) exacerbation; K59.00 Constipation, unspecified; Z66 Do not resuscitate; J20.9 Acute bronchitis, unspecified; Z51.5 Encounter for palliative care; F41.9 Anxiety disorder, unspecified; F32.A Depression, unspecified; B95.62 Methicillin resistant Staphylococcus aureus infection as the cause of diseases classified elsewhere; E11.22 Type 2 diabetes mellitus with diabetic chronic kidney disease; K21.9 Gastro-esophageal reflux disease without esophagitis; E78.5 Hyperlipidemia, unspecified; M19.90 Unspecified osteoarthritis, unspecified site; Z20.822 Contact with and (suspected) exposure to COVID-19; Z90.49 Acquired absence of other specified parts of digestive tract; Z90.710 Acquired absence of both cervix and uterus; Z88.8 Allergy status to other drugs, medicaments and biological substances; Z88.2 Allergy status to sulfonamides; Z88.5 Allergy status to narcotic agent; Z88.1 Allergy status to other antibiotic agents; Z79.4 Long term (current) use of insulin; Z79.899 Other long term (current) drug therapy; Z79.01 Long term (current) use of anticoagulants; Z79.82 Long term (current) use of aspirin; Z79.2 Long term (current) use of antibiotics; Z98.890 Other specified postprocedural states; Z98.84 Bariatric surgery status; Z87.891 Personal history of nicotine dependence; Z74.01 Bed confinement status
CPT/HCPCS: 0241U; 36415; 51798; 71046; 80053; 81001; 82947; 83036; 83735; 83880; 84484; 85025; 93005; 93010; 96374; 96376; 97110; 97162; 99285-25; A9270; J1650; J1815; J1940; J2405; J7050